=== PATIENT | female | born 1945 | race Two or more races ===

== ENCOUNTER 2021-06-03 18:53 | Emergency (ER) | payer OTHER ==
[~2021-06-03] VITALS: Ht 149.9 cm; Wt 72.6 kg
[2021-06-03] MEDS ORDERED: SIMVASTATIN (20:16)
[2021-06-03] MEDS ORDERED: OMEPRAZOLE20 MG (20:17)
[2021-06-03] MEDS ORDERED: SERTRALINE HCL 25 MG (20:18)
[2021-06-03] MEDS ORDERED: ALLER-TEC10 MG (20:21)
[2021-06-03] MEDS ORDERED: VASOTEC20 M1 (20:21)
[2021-06-03] MEDS ORDERED: [UNRECOGNIZED DRUG - OTHER] (20:23)
[2021-06-03] MEDS ORDERED: BUDESONIDE (20:25)
== END 2021-06-04 03:11 | disposition home or self-care (01) ==
LOC: ER 18:53
DX: J45.909 Unspecified asthma, uncomplicated (principal); Z03.818 Encounter for observation for suspected exposure to other biological agents ruled out; R06.02 Shortness of breath